=== PATIENT | male | born 1985 | race African-American/Black ===

== ENCOUNTER 2016-09-30 23:19 | Emergency (ER) | payer OTHER ==
[~2016-09-30 23:19] MED LIST: AMOXICILLIN875 M1 PO; IBUPROFEN600 M1 PO; PERCOCET 5-3251 EACH PO
[2016-09-30 23:49] VITALS: BP 129/77
--- NOTE | 2016-10-01 00:04 | ED THROAT/DENTAL COMPLAINT ---
History of Present Illness General Chief Complaint: Sore Throat, Dental Pain Stated Complaint: DENTAL SURGERY ON , PAIN Source: patient, old records Exam Limitations: no limitations Vital Signs & Intake/Output Vital Signs & Intake/Output Vital Signs Date Time Temp Pulse Resp B/P Pulse O2 O2 Flow FiO2 Ox Delivery Rate 09/30 2351 100 Room Air 09/30 2349 99.1 77 18 129/77 100 Room Air Allergies Coded Allergies: No Known Allergies (09/30/16) Reconcile Medications Ibuprofen 600 MG TABLET 1 TAB PO Q6PRN PRN pain with food Oxycodone HCl/Acetaminophen (Percocet 5-325 MG Tablet) 5 MG-325 MG TABLET 1 TAB PO BID PRN PAIN Triage Note: TRIAGE: PATIENT TO ER REPORTS APPT FOR DENTAL SURG ON 10/15/16, TOOK TWO 600MG IBUPROFEN W/O RELIEF (11AM AND 4PM). REPORTS EATING SOFT DIET INSTRUCTED W/O RELIEF. REPORTING "SURGERY IS FOR TEETH REMOVAL ON BOTH SIDES, ALSO STATES USED TO DRINK AND STOPPED ON THE , DON'T KNOW IF THAT'S WHY HAVING PAIN THERE." Triage Nurses Notes Reviewed? yes Onset: Abrupt Duration: week(s): (1), constant, getting worse Timing: recent history Injury Environment: home Severity: moderate, severe Severity Numbers: 10 Modifying Factors: Worsens With: eating. Associated Symptoms: denies HPI: 80-year-old male presents emergency room complaining of left lower dental pain for the past one week getting progressively worse worse with chewing. He is scheduled to have dental surgery performed in 14 days. He's been taking ibuprofen without any improvement. Pain is worse with palpation he denies fever chills difficulty swallowing, swelling to his face. There are no other modifying factors or associated symptoms otherwise (MARCO DICKINSON) Past History Travel History Traveled to [place] past 21 day No Medical History Any Pertinent Medical History? 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 No (MARCO DICKINSON) Review of Systems Review of Systems Constitutional: Reports: see HPI. All Other Systems: Reviewed and Negative Comments Review of systems: See HPI, All other systems negative. Constitutional, no chills no fever, no malaise HEENT: No visual changes no sore throat no congestion Cardiovascular: No chest pain , no palpitation Skin, no rashes, no change in skin Respiratory: No dyspnea no cough no sputum GI: No nausea no vomiting, no diarrhea, : No dysuria No hematuria, no frequency, no discharge Muscle skeletal: No joint pain, no back pain, no neck pain, Neurologic: No numbness no headache Psych: No stress no anxiety Heme/endocrine: No bruising no bleeding Immunology: No lymphadenopathy (MARCO DICKINSON) Physical Exam Physical Exam General Appearance: well developed/nourished, no apparent distress, alert, awake Mouth/Throat: dental tenderness Comments: Well-developed well-nourished patient in no apparent distress. Head/Face: Atraumatic, no maxillary/frontal sinus tenderness, no facial swelling Eyes: PERRL, EOMI, no conjunctival injection. Ear:External auditory canals clear Nose: atraumatic.Normal inspection: No bleeding Throat: Moist mucous membranes.Pharynx normal. No pharyngeal erythema/exudate seen. No stridor/drooling or assymetry. No swelling or edema. Poor dentition no gingival abscess no trismus no uvula displacement Neck: Supple, no lymphadenopathy, FROM Back: FROM, Nontender Cardiovascular: Regular rate and rhythms no murmurs rubs Respiratory: No respiratory distress. Patient speaking in full complete sentences. Breath sounds clear to auscultation bilaterally: NO W/R/R Extremities: full range of motion Neuro: Alert and oriented x3 Skin: Warm & dry;No appreciable rash on exposed skin Psych: Mood affect normal, normal memory normal judgment. Core Measures ACS in differential dx? No Severe Sepsis Present: No Septic Shock Present: No (MARCO DICKINSON) Progress Differential Diagnosis: carious tooth, epiglottitis, odontogenic abscess, liam- tonsillar abscess, stomatitis/gingivitis, tooth fracture Plan of Care: Current Medications Sig/Jennifer Start time Last Medication Dose Stop Time Status Admin Oxycodone/ 1 TAB ONCE ONE 10/01 001 AC Acetaminophen 10/01 15 (Percocet) Advised patient follow up as scheduled with dentist, advise continue taking ibuprofen prescription for Percocet provided for breakthrough pain I discussed the medications that they will receive with the patient. I gave them signs and symptoms that could indicate an adverse reaction. I have advised them to limit their activities until they can see how they respond to the medication. (MARCO DICKINSON) Departure Departure Time of Disposition: 6 Disposition: HOME OR SELF CARE Condition: Stable Clinical Impression Primary Impression: Chronic dental pain Referrals: Trung MARTÍNEZ MD (PCP/Family) Additional Instructions: Follow-up with your dentist as scheduled later this month. Continue taking ibuprofen every 8 hours, Percocet for breakthrough pain use caution as this will make you drowsy no driving or drinking alcohol while taking this prescription was sent to [facility] pharmacy. Departure Forms: Customer Survey General Discharge Information Prescriptions: Current Visit Scripts Oxycodone HCl/Acetaminophen (Percocet 5-325 MG Tablet) 1 TAB PO BID PRN PAIN #8 TAB (MARCO DICKINSON) PA/[employer] Co-Sign Statement Statement: ED Attending supervision documentation- [] I saw and evaluated the patient. I have also reviewed all the pertinent lab results and diagnostic results. I agree with the findings and the plan of care as documented in the PA's/[employer]'s documentation. [x] I have reviewed the ED Record and agree with the PA's/[employer]'s documentation. [] Additions or exceptions (if any) to the PAs/[employer]'s note and plan are summarized below: [] (LEIGHTON ANDERSON,LAURA Lobo)
[2016-10-01] MEDS ORDERED: PERCOCET 5-3251 EACH PO (00:08)
== END 2016-10-01 00:18 ==
LOC: ERH 23:19
DX: K08.89 Other specified disorders of teeth and supporting structures (principal)

== ENCOUNTER 2016-12-13 23:40 | Emergency (ER) | payer OTHER ==
[~2016-12-13] VITALS: Ht 170.2 cm; Wt 62.6 kg
[2016-12-14 00:07] VITALS: BP 120/77
[2016-12-14] MEDS ORDERED: PERCOCET 5-3251 EACH PO (00:42)
[2016-12-14] MEDS ORDERED: AMOXICILLIN500 M3 PO (00:42)
--- NOTE | 2016-12-14 00:42 | ED THROAT/DENTAL COMPLAINT ---
History of Present Illness General Chief Complaint: Sore Throat, Dental Pain Stated Complaint: DENTAL PAIN Source: patient Exam Limitations: no limitations Vital Signs & Intake/Output Vital Signs & Intake/Output Vital Signs Date Time Temp Pulse Resp B/P Pulse O2 O2 Flow FiO2 Ox Delivery Rate 12/14 0007 99.0 76 18 120/77 98 Room Air Allergies Coded Allergies: No Known Allergies (09/30/16) Reconcile Medications Amoxicillin 500 MG TABLET 1 TAB PO TID tooth pain Ibuprofen 600 MG TABLET 1 TAB PO Q6PRN PRN pain with food Oxycodone HCl/Acetaminophen (Percocet 5-325 MG Tablet) 5 MG-325 MG TABLET 1-2 TAB PO BID pain Oxycodone HCl/Acetaminophen (Percocet 5-325 MG Tablet) 5 MG-325 MG TABLET 1 TAB PO BID PRN PAIN Triage Note: PT TO ED C/O DENTAL PAIN FOR 2 DAYS "I HAVE NO SLEEP" Triage Nurses Notes Reviewed? yes Onset: Abrupt Duration: day(s):, constant, continues in ED Timing: recent history Injury Environment: home Severity: moderate, severe No Modifying Factors: none HPI: 30-year-old male comes into emergency room with complaints of left upper and left lower dental pains been going on for the past couple days. Patient previously had some teeth pulled in the area. Denies any vomiting. Denies any fever. Sharp stabbing pain. Continuous. Nonrevealing. Denies any other symptoms of symptoms. (VERONICA BERMUDEZ) Past History Travel History Traveled to [place] past 21 day No Medical History Any Pertinent Medical History? 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 No (VERONICA BERMUDEZ) Review of Systems Review of Systems Constitutional: Reports: no symptoms. EENTM: Reports: see HPI. Respiratory: Reports: no symptoms. Cardiovascular: Reports: no symptoms. GI: Reports: no symptoms. Genitourinary: Reports: no symptoms. Musculoskeletal: Reports: no symptoms. Skin: Reports: no symptoms. Neurological/Psychological: Reports: no symptoms. Hematologic/Endocrine: Reports: no symptoms. Immunologic/Allergic: Reports: no symptoms. All Other Systems: Reviewed and Negative (VERONICA BERMUDEZ) Physical Exam Physical Exam General Appearance: well developed/nourished, no apparent distress, alert Head: atraumatic, normal appearance Eyes: Bilateral: normal appearance. Nose: normal inspection Mouth/Throat: normal mouth inspection, dental tenderness Neck: normal inspection Cardiovascular/Respiratory: no respiratory distress Back: normal inspection Neurologic/Psych: awake, alert, oriented x 3, normal gait Skin: intact, normal color Core Measures ACS in differential dx? No Severe Sepsis Present: No Septic Shock Present: No (VERONICA BERMUDEZ) Progress Differential Diagnosis: aspirated tooth, carious tooth, epiglottitis, Ludwigs angina, meningitis, odontogenic abscess, liam-tonsillar abscess, pharyngeal for. body, stomatitis/gingivitis, strep pharyngitis, tooth fracture Plan of Care: No evidence of abscess. Patient referred to dentist. Started on oral antibiotics and pain medication. (VERONICA BERMUDEZ) Departure Departure Disposition: HOME OR SELF CARE Condition: Stable Clinical Impression Primary Impression: Odontalgia Referrals: Trung MARTÍNEZ MD (PCP/Family) Additional Instructions: Take Percocet and amoxicillin as prescribed. Follow-up with dentist. Return if any concerns worsening symptoms. Please go over all results of today's visit with your primary care doctor. Contact your primary care doctor to let them know you were here in the emergency room. There may be nonspecific findings which may not be related to your visit today here in the emergency room but may require further evaluation and chronic monitoring by your primary care doctor. If you had a laceration today the chance of foreign body always remains. You should follow-up with your primary care doctor for recheck in 3-5 days for a wound check. If you had an x-ray done there is a chance that a fracture could have been missed on initial read and you should follow-up with your primary care doctor for repeat x-rays if symptoms persist. If your blood pressure was elevated here in the emergency room please have rechecked by her primary care doctor within the next 48 hours by your primary care doctor. If you were prescribed a narcotic here in the emergency room or any type of controlled substances you're not allowed to drive while taking this medication or operate any type of heavy machinery. Narcotics can make you feel lightheaded dizziness nausea and can cause constipation. You may need to milk pickup driver a stool softener. Thank you for choosing [facility] emergency room. Please return to the emergency room immediately if you have any other concerns worsening of symptoms. Departure Forms: Customer Survey General Discharge Information (VERONICA BERMUDEZ) Departure Prescriptions: Current Visit Scripts Oxycodone HCl/Acetaminophen (Percocet 5-325 MG Tablet) 1-2 TAB PO BID #15 TAB Amoxicillin 1 TAB PO TID #21 TAB PA/[employer]HE[employer] Co-Sign Statement Statement: ED Attending supervision documentation- [] I saw and evaluated the patient. I have also reviewed all the pertinent lab results and diagnostic results. I agree with the findings and the plan of care as documented in the PA's/WHEAT FARMER's documentation. [X] I have reviewed the ED Record and agree with the PA's/WHEAT FARMER's documentation. [] Additions or exceptions (if any) to the PAs/WHEAT FARMER's note and plan are summarized below: [] (LEIGHTON ANDERSON,LAURA Lobo)
== END 2016-12-14 00:56 ==
LOC: ERH 23:40
DX: K08.89 Other specified disorders of teeth and supporting structures (principal)